=== PATIENT | female | born 1995 | race Caucasian/White ===

== ENCOUNTER 2017-01-18 14:06 | Inpatient (IN) | payer OTHER, MEDICAID ==
[~2017-01-18] VITALS: Ht 157.5 cm; Wt 68.6 kg
[2017-01-27] VITALS (38 sets, daily range): BP systolic 109–146; BP diastolic 57–84; PULSE 9–126; TEMP 97.2–97.7
[2017-01-27 14:10] LABS: BASO % 0.3 % (0.0-2.0); EOS % 0.4 % (0-4.0); GRAN # 7.3 (1.4-6.5); GRAN % 70.6 % (42.2-75.2); HEMATOCRIT 37.6 % (35.0-45.0); LYMPH # 2.2 (1.2-3.4); LYMPH % 20.8 % (20.0-51.0); MEAN CELL VOLUME 88 fl (80.0-95.0); MEAN CORPUSCULAR HEMOGLOBIN 30 pg (26.0-32.0); MEAN CORPUSCULAR HGB CONC 35 g/dl (33.0-37.0); MEAN PLATELET VOLUME 9.9 fl (7.4-10.4); MONO # 0.8 (0.1-0.6); MONO % 7.5 % (1.7-9.3); PLATELET COUNT 215 K/mm3 (130-400); RED BLOOD COUNT 4.29 M/mm3 (4.10-5.30); REDCELL DISTRIBUTION WIDTH-CV 12.9 % (11.5-14.5); WHITE BLOOD COUNT 10.3 K/mm3 (4.8-10.8)
[2017-01-27] MEDS ORDERED: PERCOCET 325 MG1 TA2 PO (16:30)
[2017-01-27] MEDS ORDERED: MOTRIN 800800 MG/TAB PO (16:30)
[2017-01-28] VITALS (52 sets, daily range): BP systolic 91–129; BP diastolic 50–70; PULSE 58–115; TEMP 97.6–98.5
[2017-01-28] MEDS ORDERED: PRENATAL MVI (12:10)
[2017-01-29 08:00] VITALS: BP 121/66; PULSE 75; TEMP 97.4
[2017-01-29 12:00] VITALS: BP 136/76; PULSE 79; TEMP 97.6
[2017-01-29 16:00] VITALS: BP 129/83; PULSE 75; TEMP 97.7
[2017-01-29 19:30] VITALS: BP 119/64; PULSE 64; TEMP 98
[2017-01-30] MEDS ORDERED: MOTRIN 800800 MG/TAB PO (08:58)
[2017-01-30] MEDS ORDERED: PERCOCET 325 MG1 TA2 PO (08:58)
[2017-01-30 09:07] VITALS: BP 120/60; PULSE 68; TEMP 97.8
== END 2017-01-30 13:45 | disposition home or self-care (01) | DRG 775 ==
LOC: LDR 01-27 11:56 → OB 01-27 13:14 → EDSTATUS 01-28 11:51 → LDRO 01-28 14:06 → OB 01-28 15:00
PROVIDERS: Obstetrics & Gynecology
PROC: 10E0XZZ Delivery of Products of Conception, External Approach (ICD-10-PCS; principal; 2017-01-28)
PROC: 0KQM0ZZ Repair Perineum Muscle, Open Approach (ICD-10-PCS; 2017-01-28)
DX: O36.5930 Maternal care for other known or suspected poor fetal growth, third trimester, not applicable or unspecified (principal); O77.0 Labor and delivery complicated by meconium in amniotic fluid; O70.1 Second degree perineal laceration during delivery; O99.013 Anemia complicating pregnancy, third trimester; D64.9 Anemia, unspecified; Z3A.39 39 weeks gestation of pregnancy; Z37.0 Single live birth
CPT/HCPCS: J2405; J2550; J2590; J7120